=== PATIENT | male | born 1975 | race Caucasian/White ===

== ENCOUNTER → 2020-07-12 14:14 | Outpatient (POV) | payer OTHER, SELFPAY | PROVIDERS: Visit Provider Dermatology | DX: Z00.00 Encounter for general adult medical examination without abnormal findings (principal) ==

== ENCOUNTER → 2020-11-02 08:12 | Outpatient (CLI) | payer OTHER, SELFPAY ==
--- NOTE | 2020-11-02 08:16 | XR_ITS ---
PROCEDURE INFORMATION: Exam: XR Right Foot Complete; Alignment Exam date and time: 11/02/2020 8:16 AM Age: 45 years old Clinical indication: Pain; Foot; Right TECHNIQUE: Imaging protocol: XR Right foot. Views: 3 or more views. COMPARISON: No relevant prior studies available. FINDINGS: Bones/joints: There is no evidence of acute fracture. There is no evidence of joint malalignment or dislocation. Calcaneal spur is present. Soft tissues: There are no soft tissue masses or fluid collections. IMPRESSION: 1. No evidence of acute fracture. 2. No evidence of acute dislocation.
--- NOTE | 2020-11-02 08:16 | XR_ITS ---
PROCEDURE INFORMATION: Exam: XR Left Foot Complete; Alignment Exam date and time: 11/02/2020 8:16 AM Age: 45 years old Clinical indication: Pain; Foot; Left TECHNIQUE: Imaging protocol: XR Left foot. Views: 3 or more views. COMPARISON: No relevant prior studies available. FINDINGS: Bones/joints: Minimal degenerative spurring of the 1st MTP joint and interphalangeal joints. Small plantar calcaneal enthesophyte. No acute fracture. No dislocation. Soft tissues: Normal. IMPRESSION: Minimal forefoot degenerative changes.
== END ==
PROVIDERS: PCP Internal Medicine Adolescent Medicine; Visit Provider Nurse Practitioner
DX: M79.672 Pain in left foot (principal); M79.671 Pain in right foot
CPT/HCPCS: 73630

== ENCOUNTER → 2021-08-18 09:05 | Outpatient (CLI) | payer OTHER, SELFPAY ==
[2021-08-18 09:47] LABS: Basophils # 0.1 K/mm3 (0-0.2); Basophils % 1.6 % (0.1-2.0); Eosinophils # 0.3 K/mm3 (0.0-0.4); Eosinophils % 6.6 % (0.1-12.0); Hematocrit 49.4 % (42.0-52.0); Hemoglobin 16.3 g/dL (14.1-18.0); Lymphocytes # 1.4 K/mm3 (0.7-4.5); Lymphocytes % 27.5 % (10-50); Mean Corpuscular HGB Conc 33.1 g/dL (31.8-35.4); Mean Corpuscular Hemoglobin 32.1 pg (27.0-31.2); Mean Platelet Volume 8.2 fl (7.4-10.4); Monocytes # 0.3 K/mm3 (0.1-1.0); Monocytes % 6.5 % (1.7-9.3); Neutrophils % 57.7 % (37.0-80.0); Platelet Count 207 K/mm3 (142-424); Red Blood Count 5.09 M/mm3 (4.60-6.20); Red Cell Distribution Width 13.1 % (11.5-17.5); White Blood Count 5.2 K/mm3 (4.8-10.8)
[2021-08-18 10:16] LABS: Alanine Aminotransferase 30 U/L (12-78); Albumin Level 4.4 g/dl (3.5-5.0); Albumin/Globulin Ratio 1.8 (1.1-1.8); Alkaline Phosphatase 78 U/L (38-126); Anion Gap 10.2 mEq/L (5-15); Aspartate Amino Transferase 33 U/L (17-59); Bilirubin,Total 0.6 mg/dl (0.2-1.3); Blood Urea Nitrogen 18 mg/dl (9-20); Carbon Dioxide 25 mmol/L (22.0-30.0); Chloride 108 mmol/L (98-107); Estimated Glomerular Filt Rate 92 ml/min (>60); GFR (African American) 111 ML/MIN (>60); Globulin 2.5 g/dL (1.3-3.2); Glucose 101 mg/dl (74-100); Potassium 4.2 mmoL/L (3.5-5.1); Sodium 139 mmol/L (136-145); Total Protein,Serum 6.9 g/dl (6.3-8.2)
[2021-08-18 10:30] LABS: Free T4 (Free Thyroxine) 0.65 ng/dl (0.78-2.19)
[2021-08-18 10:31] LABS: 25-OH Vitamin D, Total 60.6 ng/mL (30-100)
[2021-08-18 10:44] LABS: Thyroid Stimulating Hormone 0.32 uIU/mL (0.465-4.68)
[2021-08-18 12:39] LABS: Hemoglobin A1C 5.2 % (4.0-6.0)
[2021-08-19 08:38] LABS: Thyroid Peroxidase Antibodies <8 IU/mL (0-34); Triiodothyronine (T3) Free 2.7 pg/mL (2.0-4.4)
[2021-08-21 23:07] LABS: Thyroglobulin Level 6.8 IU/mL (0.0-0.9)
== END ==
PROVIDERS: Visit Provider Family Medicine
DX: E78.00 Pure hypercholesterolemia, unspecified (principal); E03.9 Hypothyroidism, unspecified; E06.9 Thyroiditis, unspecified; E55.9 Vitamin D deficiency, unspecified; Z83.3 Family history of diabetes mellitus
CPT/HCPCS: 36415; 80053; 82306; 83036; 84439; 84443; 84481; 85025; 86376; 86800

== ENCOUNTER → 2021-10-17 10:59 | Outpatient (POV) | payer OTHER, SELFPAY | PROVIDERS: Visit Provider Dermatology | DX: Z00.00 Encounter for general adult medical examination without abnormal findings (principal) ==

== ENCOUNTER → 2022-04-03 08:31 | Outpatient (POV) | payer OTHER, SELFPAY | PROVIDERS: Visit Provider Dermatology | DX: Z00.00 Encounter for general adult medical examination without abnormal findings (principal) ==

== ENCOUNTER → 2022-06-04 08:03 | Outpatient (CLI) | payer BC, OTHER, SELFPAY ==
[2022-06-04 09:25] LABS: Basophils # 0.1 K/mm3 (0-0.2); Basophils % 0.8 % (0.1-2.0); Eosinophils # 0.2 K/mm3 (0.0-0.4); Eosinophils % 2.8 % (0.1-12.0); Hematocrit 47.2 % (42.0-52.0); Lymphocytes # 1.1 K/mm3 (0.7-4.5); Lymphocytes % 19.6 % (10-50); Mean Corpuscular HGB Conc 33.9 g/dL (31.8-35.4); Mean Corpuscular Volume 94.4 fl (80-94); Mean Platelet Volume 8.3 fl (7.4-10.4); Monocytes # 0.4 K/mm3 (0.1-1.0); Monocytes % 6.9 % (1.7-9.3); Neutrophils # 3.9 K/mm3 (1.8-7.8); Neutrophils % 69.9 % (37.0-80.0); Platelet Count 226 K/mm3 (142-424); Red Cell Distribution Width 12.8 % (11.5-17.5); White Blood Count 5.6 K/mm3 (4.8-10.8)
[2022-06-04 10:15] LABS: Alanine Aminotransferase 27 U/L (12-78); Albumin Level 4.5 g/dl (3.5-5.0); Albumin/Globulin Ratio 1.6 (1.1-1.8); Alkaline Phosphatase 74 U/L (38-126); Anion Gap 10.8 mEq/L (5-15); Aspartate Amino Transferase 30 U/L (17-59); Bilirubin,Total 0.6 mg/dl (0.2-1.3); Blood Urea Nitrogen 14 mg/dl (9-20); Calcium 8.9 mg/dl (8.4-10.2); Carbon Dioxide 26 mmol/L (22.0-30.0); Chloride 108 mmol/L (98-107); Estimated Glomerular Filt Rate 105 ml/min (>60); GFR (African American) 126 ML/MIN (>60); Globulin 2.8 g/dL (1.3-3.2); Glucose 106 mg/dl (74-100); Potassium 3.8 mmoL/L (3.5-5.1); Sodium 141 mmol/L (136-145); Total Protein,Serum 7.3 g/dl (6.3-8.2)
[2022-06-04 10:20] LABS: C-Reactive Protein 0.6 mg/L (0-4)
[2022-06-04 10:33] LABS: 25-OH Vitamin D, Total 57.5 ng/mL (30-100); Free T4 (Free Thyroxine) 0.77 ng/dl (0.78-2.19)
[2022-06-04 10:47] LABS: Prostate Specific Ag Screen 0.8 ng/ml (0.0-4.0); Thyroid Stimulating Hormone 0.26 uIU/mL (0.465-4.68)
[2022-06-04 15:33] LABS: Hemoglobin A1C 5.2 % (4.0-6.0)
[2022-06-05 09:13] LABS: Estradiol 26.6 pg/mL (7.6-42.6); Homocyst(e)ine 6.3 umol/L (0.0-14.5); Sex Hormone Binding Globulin 55.3 nmol/L (16.5-55.9); Thyroid Peroxidase Antibodies <9 IU/mL (0-34); Triiodothyronine (T3) Free 2.7 pg/mL (2.0-4.4)
[2022-06-05 22:07] LABS: Thyroglobulin Level 4.9 IU/mL (0.0-0.9)
[2022-06-06 08:30] LABS: Zinc 95 ug/dL (44-115)
[2022-06-09 16:05] LABS: Testosterone, Total, LC/MS 607.7 ng/dL (264.0-916.0); Testosterone,Free 7.2 pg/mL (6.8-21.5)
[2022-06-13 10:07] LABS: Miscellaneous Test SCANNED REPORT
[2022-06-16 02:02] LABS: Triiodothyronine (T3) Reverse 23.3
[2022-06-16 03:35] LABS: LDL-P 1087
[2022-06-16 03:36] LABS: LDL-C 102
[2022-06-16 03:37] LABS: LDL Size 21.4
[2022-06-16 03:38] LABS: LP-IR Score 39
[2022-06-16 03:39] LABS: Cholesterol, Total 173; Triglycerides 129
[2022-06-16 03:41] LABS: HDL-C 48
== END ==
PROVIDERS: PCP Family Medicine; Visit Provider Family Medicine
DX: E34.9 Endocrine disorder, unspecified (principal); E03.9 Hypothyroidism, unspecified; E06.9 Thyroiditis, unspecified; E78.00 Pure hypercholesterolemia, unspecified; R35.1 Nocturia; E53.8 Deficiency of other specified B group vitamins; E55.9 Vitamin D deficiency, unspecified; M25.50 Pain in unspecified joint; Z83.3 Family history of diabetes mellitus
CPT/HCPCS: 36415; 80053; 82306; 82626; 82670; 83036; 83090; 83525; 83704; 84270; 84402; 84403; 84439; 84443; 84481; 84482; 84630; 85025; 86140; 86376; 86800; G0103

== ENCOUNTER → 2022-11-05 08:50 | Outpatient (CLI) | payer BC, SELFPAY ==
[2022-11-05 09:28] LABS: Basophils % 0.8 % (0.1-2.0); Eosinophils # 0.3 K/mm3 (0.0-0.4); Eosinophils % 5.8 % (0.1-12.0); Hematocrit 48.7 % (42.0-52.0); Hemoglobin 15.6 g/dL (14.1-18.0); Lymphocytes # 1.4 K/mm3 (0.7-4.5); Lymphocytes % 25.1 % (10-50); Mean Corpuscular HGB Conc 32.1 g/dL (31.8-35.4); Mean Corpuscular Volume 93.5 fl (80-94); Mean Platelet Volume 8.3 fl (7.4-10.4); Monocytes # 0.4 K/mm3 (0.1-1.0); Monocytes % 6.8 % (1.7-9.3); Neutrophils # 3.4 K/mm3 (1.8-7.8); Neutrophils % 61.4 % (37.0-80.0); Platelet Count 189 K/mm3 (142-424); Red Cell Distribution Width 12.9 % (11.5-17.5); White Blood Count 5.5 K/mm3 (4.8-10.8)
[2022-11-05 10:32] LABS: Chloride 104 mmol/L (98-107); Potassium 3.8 mmoL/L (3.5-5.1); Sodium 139 mmol/L (136-145)
[2022-11-05 10:34] LABS: Alanine Aminotransferase 29 U/L (12-78); Aspartate Amino Transferase 33 U/L (17-59); Blood Urea Nitrogen 17 mg/dl (9-20); Estimated Glomerular Filt Rate 105 ml/min (>60); GFR (African American) 126 ML/MIN (>60)
[2022-11-05 10:35] LABS: Albumin Level 3.9 g/dl (3.5-5.0); Albumin/Globulin Ratio 1.6 (1.1-1.8); Alkaline Phosphatase 88 U/L (38-126); Anion Gap 10.8 mEq/L (5-15); Bilirubin,Total 0.4 mg/dl (0.2-1.3); Calcium 8.5 mg/dl (8.4-10.2); Carbon Dioxide 28 mmol/L (22.0-30.0); Cholesterol 158 mg/dl (140-200); Globulin 2.5 g/dL (1.3-3.2); Glucose 95 mg/dl (74-100); HDL Cholesterol 40 mg/dl (40-60); Total Protein,Serum 6.4 g/dl (6.3-8.2); Triglycerides 158 mg/dl (30-150); VLDL Cholesterol 32 mg/dL (0-40)
[2022-11-05 10:41] LABS: C-Reactive Protein 0.7 mg/L (0-4)
[2022-11-05 10:46] LABS: Direct LDL Cholesterol 84.54 mg/dL (100-129)
[2022-11-05 10:55] LABS: Hemoglobin A1C 5.2 % (4.0-6.0)
[2022-11-05 11:07] LABS: Thyroid Stimulating Hormone 0.06 uIU/mL (0.465-4.68)
[2022-11-05 12:02] LABS: Prostate Specific Ag Screen 1.1 ng/ml (0.0-4.0)
[2022-11-06 10:15] LABS: Estradiol 30.4 pg/mL (7.6-42.6); LH 7.3 mIU/mL (1.7-8.6); Testosterone,Total 580 ng/dL (264-916); Triiodothyronine (T3) Free 3.2 pg/mL (2.0-4.4)
== END ==
PROVIDERS: PCP Internal Medicine Adolescent Medicine; Visit Provider General Practice
DX: R73.01 Impaired fasting glucose (principal); D64.9 Anemia, unspecified; I10 Essential (primary) hypertension; R51.9 Headache, unspecified; E34.9 Endocrine disorder, unspecified; E03.4 Atrophy of thyroid (acquired); R10.9 Unspecified abdominal pain; Z13.9 Encounter for screening, unspecified; Z13.220 Encounter for screening for lipoid disorders; Z13.29 Encounter for screening for other suspected endocrine disorder; Z79.890 Hormone replacement therapy; Z79.899 Other long term (current) drug therapy; Z12.5 Encounter for screening for malignant neoplasm of prostate
CPT/HCPCS: 36415; 80053; 80061; 82670; 83002; 83036; 84403; 84443; 84481; 85025; 86140; G0103

== ENCOUNTER → 2023-04-02 09:10 | Outpatient (CLI) | payer BC, SELFPAY ==
[2023-04-02 09:48] LABS: Basophils # 0.1 K/mm3 (0-0.2); Basophils % 0.8 % (0.1-2.0); Eosinophils # 0.2 K/mm3 (0.0-0.4); Eosinophils % 3.1 % (0.1-12.0); Hematocrit 55.5 % (42.0-52.0); Lymphocytes # 1.3 K/mm3 (0.7-4.5); Mean Corpuscular HGB Conc 33.4 g/dL (31.8-35.4); Mean Corpuscular Hemoglobin 32.2 pg (27.0-31.2); Mean Corpuscular Volume 96.4 fl (80-94); Mean Platelet Volume 8.2 fl (7.4-10.4); Monocytes # 0.4 K/mm3 (0.1-1.0); Monocytes % 7.2 % (1.7-9.3); Neutrophils # 4.1 K/mm3 (1.8-7.8); Neutrophils % 67.9 % (37.0-80.0); Platelet Count 198 K/mm3 (142-424); Red Blood Count 5.76 M/mm3 (4.60-6.20); Red Cell Distribution Width 13.3 % (11.5-17.5)
[2023-04-02 10:11] LABS: Hemoglobin 18.5 g/dL (14.1-18.0)
[2023-04-02 10:52] LABS: Opiate Screen,Urine Negative ng/ml (<300); Phencyclidine Screen,Urine Negative ng/ml (<25)
[2023-04-02 10:54] LABS: Amphetamine/Metha Screen,Urine Negative ng/ml (<1000); Barbiturates Screen,Urine Negative ng/ml (<200)
[2023-04-02 10:55] LABS: Benzodiazepines Screen,Urine Negative ng/ml (<200)
[2023-04-02 10:58] LABS: Cannabinoid Screen,Urine Positive ng/ml (<50); Cocaine Screen,Urine Negative ng/ml (<300)
[2023-04-02 10:59] LABS: Methadone Screen,Urine Negative ng/ml (<300)
[2023-04-02 11:16] LABS: Thyroid Stimulating Hormone 0.37 uIU/mL (0.465-4.68)
[2023-04-03 08:18] LABS: Estradiol 51.3 pg/mL (7.6-42.6); Triiodothyronine (T3) Free 2.9 pg/mL (2.0-4.4)
[2023-04-08 11:13] LABS: Free Testosterone (Direct) 37.4 pg/mL (6.8-21.5); Testosterone, Total, LC/MS 1295.6 ng/dL (264.0-916.0)
== END ==
PROVIDERS: PCP Family Medicine; Visit Provider Nurse Practitioner
DX: E34.9 Endocrine disorder, unspecified (principal); E29.1 Testicular hypofunction; Z79.890 Hormone replacement therapy
CPT/HCPCS: 36415; 80305; 82670; 84443; 84481; 85025

== ENCOUNTER 2023-08-06 08:56 | Outpatient (CLI) | payer BC, SELFPAY ==
[2023-08-06 09:32] LABS: Basophils # 0.1 K/mm3 (0-0.2); Basophils % 1.2 % (0.1-2.0); Eosinophils # 0.2 K/mm3 (0.0-0.4); Eosinophils % 3.2 % (0.1-12.0); Hematocrit 48.4 % (42.0-52.0); Hemoglobin 16.8 g/dL (14.1-18.0); Lymphocytes # 1.1 K/mm3 (0.7-4.5); Lymphocytes % 21.9 % (10-50); Mean Corpuscular HGB Conc 34.8 g/dL (31.8-35.4); Mean Corpuscular Hemoglobin 34.3 pg (27.0-31.2); Mean Corpuscular Volume 98.7 fl (80-94); Mean Platelet Volume 8.3 fl (7.4-10.4); Monocytes # 0.4 K/mm3 (0.1-1.0); Monocytes % 7.3 % (1.7-9.3); Neutrophils # 3.3 K/mm3 (1.8-7.8); Neutrophils % 66.4 % (37.0-80.0); Platelet Count 202 K/mm3 (142-424); Red Cell Distribution Width 13.1 % (11.5-17.5); White Blood Count 4.9 K/mm3 (4.8-10.8)
[2023-08-07 13:11] LABS: Estradiol 23.2 pg/mL (7.6-42.6); Triiodothyronine (T3) Free 2.4 pg/mL (2.0-4.4)
[2023-08-09 10:22] LABS: Testost., % Free+Weakly Bound 32.2 % (9.0-46.0); Testost., FW Bound 377.1 ng/dL (40.0-250.0); Testosterone,Total 1171 ng/dL (264-916)
[2023-08-10 18:33] LABS: Testosterone, Total, LC/MS 1142 ng/dL (.)
== END 2023-08-06 23:59 ==
LOC: LAB 08:57
PROVIDERS: PCP Internal Medicine Adolescent Medicine; Visit Provider General Practice
DX: E29.1 Testicular hypofunction (principal); E34.9 Endocrine disorder, unspecified; Z79.890 Hormone replacement therapy
CPT/HCPCS: 36415; 82670; 84402; 84403; 84443; 84481; 85025

== ENCOUNTER 2024-04-03 11:22 | Outpatient (CLI) | payer BC, SELFPAY ==
[2024-04-03 11:50] LABS: Basophils # 0.1 K/mm3 (0-0.2); Basophils % 1.2 % (0.1-2.0); Eosinophils # 0.2 K/mm3 (0.0-0.4); Eosinophils % 3.5 % (0.1-12.0); Lymphocytes # 1.3 K/mm3 (0.7-4.5); Lymphocytes % 18.9 % (10-50); Mean Corpuscular HGB Conc 34.4 g/dL (31.8-35.4); Mean Corpuscular Hemoglobin 31.8 pg (27.0-31.2); Mean Corpuscular Volume 92.5 fl (80-94); Mean Platelet Volume 7.9 fl (7.4-10.4); Monocytes # 0.5 K/mm3 (0.1-1.0); Monocytes % 6.5 % (1.7-9.3); Neutrophils # 4.9 K/mm3 (1.8-7.8); Platelet Count 174 K/mm3 (142-424); Red Blood Count 5.73 M/mm3 (4.60-6.20)
[2024-04-03 13:01] LABS: Thyroid Stimulating Hormone 1.93 uIU/mL (0.465-4.68)
[2024-04-03 14:33] LABS: Barbiturates Screen,Urine Negative ng/ml (<200)
[2024-04-03 14:34] LABS: Benzodiazepines Screen,Urine Negative ng/ml (<200)
[2024-04-03 14:35] LABS: Amphetamine/Metha Screen,Urine Negative ng/ml (<1000); Methadone Screen,Urine Negative ng/ml (<300)
[2024-04-03 14:36] LABS: Cannabinoid Screen,Urine Positive ng/ml (<50)
[2024-04-03 14:37] LABS: Cocaine Screen,Urine Negative ng/ml (<300); Opiate Screen,Urine Negative ng/ml (<300)
[2024-04-03 14:38] LABS: Phencyclidine Screen,Urine Negative ng/ml (<25)
[2024-04-08 09:16] LABS: Testost., % Free+Weakly Bound 50.7 % (9.0-46.0); Testost., FW Bound >760.5 ng/dL (40.0-250.0); Testosterone,Total >1500 ng/dL (264-916)
== END 2024-04-03 23:59 | disposition home or self-care (01) ==
LOC: LAB 11:25
PROVIDERS: PCP Internal Medicine Adolescent Medicine; Visit Provider General Practice
DX: E34.9 Endocrine disorder, unspecified (principal); E29.1 Testicular hypofunction; Z13.9 Encounter for screening, unspecified; E03.9 Hypothyroidism, unspecified; Z79.890 Hormone replacement therapy; Z02.83 Encounter for blood-alcohol and blood-drug test
CPT/HCPCS: 36415; 80307; 82670; 84402; 84403; 84443; 84481; 85025

== ENCOUNTER 2024-08-12 11:36 | Outpatient (CLI) | payer BC, SELFPAY | END 2024-08-12 23:59 | disposition home or self-care (01) | LOC: LAB 11:38 | PROVIDERS: PCP Internal Medicine Adolescent Medicine; Visit Provider General Practice | DX: E29.1 Testicular hypofunction (principal); E34.9 Endocrine disorder, unspecified; Z13.220 Encounter for screening for lipoid disorders; Z13.89 Encounter for screening for other disorder ==

== ENCOUNTER 2024-11-24 09:23 | Outpatient (CLI) | payer BC, SELFPAY | END 2024-11-24 23:59 | disposition home or self-care (01) | LOC: LAB 09:25 | PROVIDERS: PCP Internal Medicine Adolescent Medicine; Visit Provider General Practice | DX: E29.1 Testicular hypofunction (principal); E34.9 Endocrine disorder, unspecified; Z13.220 Encounter for screening for lipoid disorders; Z13.89 Encounter for screening for other disorder ==